=== PATIENT | male | born 1980 | race Two or more races ===

== ENCOUNTER 2024-07-02 06:38 | Emergency (ER) | payer OTHER, SELFPAY ==
[2024-07-02 06:43] VITALS: BP 152/82; PULSE 59; RESP 16; TEMP 36.1; O2SAT 97
--- NOTE | 2024-07-02 07:02 | ED_ITS ---
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 Says this started little bit yesterday but worse today. Denies mouth trauma. No recorded fever, no difficulty breathing or swallowing. Has not taken anything for his symptoms. No history of diabetes or recent dental work. Related Data Previous Rx's ?Medication ?Instructions ?Recorded amoxicillin 875 mg tablet 875 mg PO BID #14 tabs 07/02/24 chlorhexidine gluconate 0.12 % 15 ml buccal BID #300 mL 07/02/24 mouthwash metronidazole 500 mg tablet 500 mg PO BID 7 days #14 tabs 07/02/24 Allergies Allergy/AdvReac Type Severity Reaction Status Date / Time No Known Drug Allergies Allergy Verified 07/02/24 06:50 PFSH PFSH Social History Smoking Status: Never smoker How often do you have a drink containing alcohol: monthly or less AUDIT-C Alcohol total score: 1 Non-prescribed substance use: denies use Exam Narrative: Exam Narrative: General: Well-developed and well-nourished, no acute distress Head: Atraumatic and normocephalic Eyes: Pupils are equal reactive, extraocular motions intact, conjunctiva clear ENT: External nose and ears are normal, posterior pharynx without erythema or exudate. Diffuse gingival swelling of the anterior lower teeth, no sublingual swelling, posterior oropharynx without erythema or exudate Neck: Left anterior cervical and submental adenopathy, no submental edema, erythema, induration, or crepitus Heart: Regular rate and rhythm no murmurs or thrills Lungs: Clear to auscultation bilaterally without wheezes or crackles Abdomen: Soft, nontender, nondistended with active bowel sounds Musculoskeletal: No tenderness, deformity, or edema Neurologic: Awake, alert, and oriented x3, no gross focal neurologic deficits, cranial nerves intact as tested Psych: Mood and affect are appropriate Skin: No rashes Const: Vital Signs, click to edit/add: Vital Signs - 24 hr 07/02/24 06:43 Temperature 97.0 F L Pulse Rate [Left P ulse Oximeter] 59 L Respiratory Rate 16 Blood Pressure [Ri ght Upper Arm] 152/82 H Pulse Oximetry 97 Oxygen Delivery Me thod Room Air Course Course ED Course: Patient seen examined, presents today with mouth pain as well as malaise. On exam here, patient is afebrile, well-appearing, handling secretions, no voice changes. There is diffuse swelling of the gingiva the anterior lower teeth, also some tender lymph nodes of the submental area and left anterior cervical chain. No posterior or pharyngeal swelling, no difficulty breathing or swallowing, no sublingual swelling. No evidence of deep space infection or Malik's angina. Patient will be started on Augmentin and Peridex rinse and follow-up with dentistry. Vital Signs Vital signs: Initial Vital Signs Temperature 97.0 F L 07/02/24 06:43 Temperature Source Temporal Artery Scan 07/02/24 06:43 Pulse Rate 59 L 07/02/24 06:43 Pulse Rhythm Regular 07/02/24 06:43 Respiratory Rate 16 07/02/24 06:43 Blood Pressure 152/82 H 07/02/24 06:43 Blood Pressure Mean 105 07/02/24 06:43 Blood Pressure Position Sitting 07/02/24 06:43 Pulse Oximetry 97 07/02/24 06:43 Oxygen Delivery Method Room Air 07/02/24 06:43 Vital Signs Temperature 97.0 F L 07/02/24 06:43 Pulse Rate 59 L 07/02/24 06:43 Respiratory Rate 16 07/02/24 06:43 Blood Pressure 152/82 H 07/02/24 06:43 Pulse Oximetry 97 07/02/24 06:43 Oxygen Delivery Method Room Air 07/02/24 06:43 Temperature 97.0 F L 07/02/24 06:43 Pulse Rate 59 L 07/02/24 06:43 Respiratory Rate 16 07/02/24 06:43 Blood Pressure 152/82 H 07/02/24 06:43 Pulse Oximetry 97 07/02/24 06:43 Oxygen Delivery Method Room Air 07/02/24 06:43 Medications Administered Medications: Discontinued Medications Generic Name Dose Route Start Last Admin Trade Name Freq PRN Reason Stop Dose Admin Amoxicillin/Clavulanate Potassium 875 mg 07/02/24 07:02 07/02/24 07:15 Amoxicillin/Clavulanate 875 Mg/125 Mg Tablet PO 07/02/24 07:03 875 mg ONCE ONE Administration Discharge Plan Discharge Clinical Impression: Necrotizing periodontal disease Patient Disposition: Home, Self-Care Condition: Stable Instructions: Trench Mouth (ED) Additional Instructions: Take antibiotics as prescribed. Follow-up with dentist as soon as possible. Activity Level: No Restrictions Discharge Diet: Regular Prescriptions: New amoxicillin 875 mg tablet 875 mg PO BID Qty: 14 0RF metronidazole 500 mg tablet 500 mg PO BID 7 Days Qty: 14 0RF chlorhexidine gluconate 0.12 % mouthwash 15 ml buccal BID Qty: 300 0RF Rx Instructions: Swish and spit Stand Alone Forms: [employer] Info Instructions
[2024-07-02] MEDS: AMOXICILLIN/CLAVULANATE 875 mg/125 mg TABLET PO (07:15)
== END 2024-07-02 08:00 | disposition home or self-care (01) ==
PROVIDERS: Emergency Provider Family Medicine
DX: K05.5 Other periodontal diseases (principal)
CPT/HCPCS: 99283; A9270